=== PATIENT | male | born 1935 | race Caucasian/White ===

== ENCOUNTER 2020-03-05 17:25 | Emergency (ER) | payer MEDICARE, OTHER ==
--- NOTE | 2020-03-05 18:31 | EDM.PDOC ---
<Angelita Fournier - Last Filed: 03/05/20 19:44> ED HPI GENERAL MEDICAL PROBLEM - General Chief Complaint: Flank Pain Stated Complaint: BACK PAIN Time Seen by Provider: 03/05/20 18:15 - Related Data Allergies Allergy/AdvReac Type Severity Reaction Status Date / Time No Known Allergies Allergy Verified 03/05/20 18:42 Home Meds: Home Meds Amiodarone [Cordarone] 1 tab PO ASDIRECTED 03/05/20 [History] Cyclobenzaprine [Flexeril] 1 tab PO TID PRN 03/05/20 [History] Levothyroxine [Synthroid] 1 tab PO DAILY 03/05/20 [History] allopurinoL [Zyloprim] 1 tab PO DAILY 03/05/20 [History] atorvaSTATin [Lipitor] 1 tab PO DAILY 03/05/20 [History] lisinopriL [Lisinopril] 5 mg PO DAILY 03/05/20 [History] Course - Vital Signs Last Recorded V/S: Last Vital Signs Temp 97.3 F 03/05/20 17:54 Pulse 62 03/05/20 17:54 Resp 16 03/05/20 17:54 BP 197/81 H 03/05/20 17:54 Pulse Ox 98 03/05/20 17:54 - Orders/Labs/Meds Labs: Laboratory Tests 03/05/20 03/05/20 Range/Units 18:41 18:41 WBC 8.6 (4.5-11.0) K/uL RBC 4.19 L (4.30-5.90) M/uL Hgb 13.5 (12.0-15.0) g/dL Hct 41.3 (40.0-54.0) % MCV 99 H (80-98) fL MCH 32 H (27-31) pg MCHC 33 (32-36) % Plt Count 226 (150-400) K/uL Neut % (Auto) 71 H (36-66) % Lymph % (Auto) 19 L (24-44) % [place] % (Auto) 9 H (2-6) % Eos % (Auto) 1 L (2-4) % Baso % (Auto) 0 (0-1) % Sodium 137 L (140-148) mmol/L Potassium 4.6 (3.6-5.2) mmol/L Chloride 101 (100-108) mmol/L Carbon Dioxide 28 (21-32) mmol/L Anion Gap 12.6 (5.0-14.0) mmol/L BUN 34 H (7-18) mg/dL Creatinine 1.4 H (0.8-1.3) mg/dL Est Cr Clr Drug Dosing 40.63 mL/min Estimated GFR (MDRD) 48 L (>60) Glucose 99 (74-106) mg/dL Calcium 8.3 L (8.5-10.1) mg/dL Total Bilirubin 0.6 (0.2-1.0) mg/dL AST 25 (15-37) U/L ALT 37 (12-78) U/L Alkaline Phosphatase 88 (46-116) U/L Total Protein 7.1 (6.4-8.2) g/dL Albumin 4.0 (3.4-5.0) g/dL Globulin 3.1 (2.3-3.5) g/dL Albumin/Globulin Ratio 1.3 (1.2-2.2) Meds: Medications Discontinued Medications Generic Name Dose Route Start Last Admin Trade Name Freq PRN Reason Stop Dose Admin Ketorolac Tromethamine 60 mg 03/05/20 19:23 03/05/20 19:41 Toradol IM 03/05/20 19:24 60 mg ONETIME ONE Administration Oxycodone/Acetaminophen 1 tab 03/05/20 19:23 03/05/20 19:41 Percocet 325-5 Mg PO 03/05/20 19:24 1 tab ONETIME ONE Administration Departure - Departure Time of Disposition: 19:39 Disposition: Home, Self-Care 01 Condition: Fair Clinical Impression: Contusion of left chest wall, Muscle spasm - Discharge Information Instructions: Contusion, [id number] Referrals: PCP,None [Primary Care Provider] - Forms: ED Department Discharge Care Plan Goals: cool pack to the left chest for the next 2 days then moist watm heat, cont flexeril 10 mg--1/2 tab tid . norco 5/325 q6h prn for pain, encourage deep breathing, Sepsis Event Note - Focused Exam Vital Signs: Vital Signs Temp Pulse Resp BP Pulse Ox 03/05/20 17:54 97.3 F 62 16 197/81 H 98 03/05/20 17:42 97.3 F 62 16 197/81 H 98 Date Exam was Performed: 03/05/20 Time Exam was Performed: 19:44 <Lindsey Bae - Last Filed: 03/05/20 21:09> ED HPI GENERAL MEDICAL PROBLEM - General Source of Information: Reports: Patient, RN, RN Notes Reviewed History Limitations: Reports: No Limitations - History of Present Illness INITIAL COMMENTS - FREE TEXT/NARRATIVE: Troy is an 84 year old male that resides in [place]. He is here in [place] for a week for vacation. On Saturday while he was still in [place], he was working out with a diabetes trainer and he fell backwards off an exercise ball hitting his left posterior back on a different piece of medical equipment. He did not have any pain at that time. He flew to [place] on Saturday morning and worked out with a diabetes trainer after arriving. He then went to [place] (saturday afternoon) to get his car and when he was walking to the car he started experiencing muscle spasms in the left flank area. He rates them 11/10 in pain. He has not tried any ice or heat. Breathing and movement aggravates the pain. Troy was seen in the [place] ER last evening for this pain and was diagnosed with rib contusion. He has chest/rib x-rays and UA done. He received toradol IM which was very helpful. States that he walked out of the ER feeling much better. He was prescribed flexeril which he did not feel was very helpful. He did take it twice today and admits it made him sleepy. Onset: Gradual Duration: Day(s): (2) Location: Reports: Back Quality: Reports: Sharp, Stabbing Severity: Severe Improves with: Reports: Other (sitting still) Worsens with: Reports: Breathing, Movement Associated Symptoms: Reports: Other (muscle spasms) Past Medical History Cardiovascular History: Reports: High Cholesterol, Hypertension Oncologic (Cancer) History: Reports: Squamous Cell Carcinoma Dermatologic History: Reports: Melanoma - Infectious Disease History Infectious Disease History: Reports: Chicken Pox, Measles - Past Surgical History Musculoskeletal Surgical History: Reports: Hip Replacement Other Musculoskeletal Surgeries/Procedures:: r hip replaced 2017 Social & Family History - Tobacco Use Smoking Status *Q: Former Smoker Years of Tobacco use: 30 Packs/Tins Daily: 1 Used Tobacco, but Quit: Yes Month/Year Tobacco Last Used: 07/1990 - Caffeine Use Caffeine Use: Reports: None - Recreational Drug Use Recreational Drug Use: No ED ROS GENERAL - Review of Systems Review Of Systems: Comprehensive ROS is negative, except as noted in HPI. ED EXAM,LOWER BACK PAIN/INJURY - Physical Exam Exam: See Below Back Exam: Normal Inspection, Decreased Range of Motion, Muscle Spasm, Vertebral Tenderness, Other (7cm by 3cm ecchymotic area over posterior left mid back) Extremities: Normal Inspection, Normal Range of Motion, Non-Tender Neurological: Alert Skin Exam: Warm, Dry, Intact Course - Orders/Labs/Meds Labs: Laboratory Tests 03/05/20 03/05/20 Range/Units 18:41 18:41 WBC 8.6 (4.5-11.0) K/uL RBC 4.19 L (4.30-5.90) M/uL Hgb 13.5 (12.0-15.0) g/dL Hct 41.3 (40.0-54.0) % MCV 99 H (80-98) fL MCH 32 H (27-31) pg MCHC 33 (32-36) % Plt Count 226 (150-400) K/uL Neut % (Auto) 71 H (36-66) % Lymph % (Auto) 19 L (24-44) % [place] % (Auto) 9 H (2-6) % Eos % (Auto) 1 L (2-4) % Baso % (Auto) 0 (0-1) % Sodium 137 L (140-148) mmol/L Potassium 4.6 (3.6-5.2) mmol/L Chloride 101 (100-108) mmol/L Carbon Dioxide 28 (21-32) mmol/L Anion Gap 12.6 (5.0-14.0) mmol/L BUN 34 H (7-18) mg/dL Creatinine 1.4 H (0.8-1.3) mg/dL Est Cr Clr Drug Dosing 40.63 mL/min Estimated GFR (MDRD) 48 L (>60) Glucose 99 (74-106) mg/dL Calcium 8.3 L (8.5-10.1) mg/dL Total Bilirubin 0.6 (0.2-1.0) mg/dL AST 25 (15-37) U/L ALT 37 (12-78) U/L Alkaline Phosphatase 88 (46-116) U/L Total Protein 7.1 (6.4-8.2) g/dL Albumin 4.0 (3.4-5.0) g/dL Globulin 3.1 (2.3-3.5) g/dL Albumin/Globulin Ratio 1.3 (1.2-2.2) Meds: Medications Discontinued Medications Generic Name Dose Route Start Last Admin Trade Name Freq PRN Reason Stop Dose Admin Ketorolac Tromethamine 60 mg 03/05/20 19:23 03/05/20 19:41 Toradol IM 03/05/20 19:24 60 mg ONETIME ONE Administration Oxycodone/Acetaminophen 1 tab 03/05/20 19:23 03/05/20 19:41 Percocet 325-5 Mg PO 03/05/20 19:24 1 tab ONETIME ONE Administration Sepsis Event Note - Evaluation Sepsis Screening Result: No Definite Risk - Focused Exam Date Exam was Performed: 03/05/20 Time Exam was Performed: 21:04 - Assessment/Plan Assessment:: CBC and CMP were drawn and reassuring. Patient given IM toradol and PO percocet with some relief. sent home with pain medications: [place].
[2020-03-05] MEDS ORDERED: Ketorolac 60 MG/2 ML SDV IM ONE (19:23)
[2020-03-05] MEDS ORDERED: Acetaminophen/oxyCODONE 325-5 MG Tab PO ONE (19:23)
== END 2020-03-05 19:50 | disposition home or self-care (01) ==
LOC: JP.ED 17:25
DX: S20.212A Contusion of left front wall of thorax, initial encounter (principal); Z87.891 Personal history of nicotine dependence; I10 Essential (primary) hypertension; Z79.899 Other long term (current) drug therapy; W18.30XA Fall on same level, unspecified, initial encounter
CPT/HCPCS: 36415; 80053; 85025; 96372; 99283; A9270; J1885